=== PATIENT | male | born 1950 | race Two or more races ===

== ENCOUNTER 2024-08-11 10:39 | Emergency (ER) | payer OTHER ==
[~2024-08-11] VITALS: Ht 185.4 cm; Wt 104.3 kg
[2024-08-11] MEDS ORDERED: ZESTRIL2.5 MG PO (11:18)
[2024-08-11] MEDS ORDERED: WARFARIN SODIUM4 MG PO (11:18)
[2024-08-11] MEDS ORDERED: TOPROL XL25 M1 PO (11:18)
[2024-08-11] MEDS ORDERED: PRAVASTATIN SOD40 MG PO (11:19)
[2024-08-11] MEDS ORDERED: CHILDREN'S ASPI81 MG PO (11:19)
[2024-08-11] MEDS ORDERED: ACID REDUCER20 M1 PO (11:19)
[2024-08-11] MEDS ORDERED: AMOX1TAB5 PO (11:19)
[2024-08-11] MEDS ORDERED: TRAZODONE HCL100 MG PO (11:19)
[2024-08-11] MEDS ORDERED: ALPRAZOLAM OD0.25 MG PO (11:20)
[2024-08-11] MEDS ORDERED: KETOROLAC TROMETHAMINE 30 MG VIAL IU ONE (12:00)
[2024-08-11 12:38] LABS: HEMATOCRIT 42.3 % (39.0-48.0); HEMOGLOBIN 14.1 g/dL (13-16.00); MEAN CORPUSCULAR HEMOGLOBIN 29.3 pg (27.00-32.0); MEAN CORPUSCULAR HGB CONC 33.3 g/dl (32.0-36.0); PLATELET COUNT 215 K/uL (150-450); RED BLOOD COUNT 4.81 M/uL (4.00-6.00); RED CELL DISTRIBUTION WIDTH 14.3 % (11.5-14.5)
[2024-08-11 13:02] LABS: INR 3.22
[2024-08-11 13:05] LABS: PARTIAL THROMBOPLASTIN TIME 42.4 SECONDS (22.0-34.0); PROTHROMBIN TIME 32.2 SECONDS (9.0-11.5)
[2024-08-11 13:08] LABS: ALBUMIN 4.3 gm/dL (3.4-5.0); BILIRUBIN TOTAL 0.76 mg/dL (0.3-1.2); CALCIUM 9.1 mg/dL (8.5-10.1); CREATININE SERUM 1.19 mg/dL (0.70-1.30); GFR 60.09; GLOBULINA 3.4 G/DL (2.4-3.5); POTASSIUM 3.61 mEq/L (3.5-5.1); TOTAL PROTEIN 7.7 gm/dL (6.4-8.2)
== END 2024-08-11 18:14 | disposition home or self-care (01) ==
LOC: ER 10:41
PROVIDERS: General Practice
DX: S80.01XA Contusion of right knee, initial encounter (principal); W18.39XA Other fall on same level, initial encounter; Y93.89 Activity, other specified; Y92.89 Other specified places as the place of occurrence of the external cause; Y99.9 Unspecified external cause status; E11.9 Type 2 diabetes mellitus without complications; Z79.84 Long term (current) use of oral hypoglycemic drugs